=== PATIENT | female | born 1985 ===

== ENCOUNTER 2019-11-14 19:25 | Inpatient (IN) | payer OTHER ==
[~2019-11-14] VITALS: Ht 154.9 cm; Wt 102.5 kg
[2019-11-14] MEDS ORDERED: PRENATAL TABLE1 EAC1 PO (20:55)
== END 2019-11-17 17:14 | disposition home or self-care (01) | DRG 807 ==
LOC: OB/GYN 19:25 → LDR 19:25 → OB/GYN 11-15 13:19
PROVIDERS: ADMIT Obstetrics & Gynecology
PROC: 10E0XZZ Delivery of Products of Conception, External Approach (ICD-10-PCS; principal; 2019-11-14)
PROC: 0HQ9XZZ Repair Perineum Skin, External Approach (ICD-10-PCS; 2019-11-14)
PROC: 3E0P7VZ Introduction of Hormone into Female Reproductive, Via Natural or Artificial Opening (ICD-10-PCS; 2019-11-14)
PROC: 3E033VJ Introduction of Other Hormone into Peripheral Vein, Percutaneous Approach (ICD-10-PCS; 2019-11-14)
PROC: 4A1HXCZ Monitoring of Products of Conception, Cardiac Rate, External Approach (ICD-10-PCS; 2019-11-14)
DX: O70.0 First degree perineal laceration during delivery (principal); Z37.0 Single live birth; Z3A.40 40 weeks gestation of pregnancy